=== PATIENT | male | born 1980 | race Caucasian/White ===

== ENCOUNTER 2018-03-20 10:15 | Emergency (ER) | payer OTHER, MEDICARE ==
[~2018-03-20] VITALS: Ht 170.2 cm; Wt 63.0 kg
[2018-03-20] MEDS ORDERED: ONDANSETRON ODT 4 MG ONE (10:55)
[2018-03-20] MEDS: HYDROmorphone 2 MG/ML, 1ML IVPush PRN ×2 (10:57→11:31)
[2018-03-20] MEDS ORDERED: KETOROLAC 30 MG/1 ML IVPush ONE (11:00)
[2018-03-20] MEDS ORDERED: SODIUM CHLORIDE FLUSH 10ML SYR IVF ONE (11:00)
[2018-03-20] MEDS ORDERED: HYDROmorphone 2 MG/ML, 1ML ONE (11:01)
[2018-03-20] MEDS ORDERED: KETOROLAC 30 MG/1 ML ONE (11:01)
[2018-03-20 11:11] LABS: BASOPHILS # (AUTO) 0.07 x10^3/uL (0-0.1); BASOPHILS % (AUTO) 1 % (0-1); EOSINOPHILS # (AUTO) 0.21 x10^3/uL (0-0.4); EOSINOPHILS % (AUTO) 1 % (1-7); LYMPHOCYTES # (AUTO) 3.78 x10^3/uL (1-3.4); LYMPHOCYTES % (AUTO) 26 % (22-44); MD NO; MEAN CORPUSCULAR HEMOGLOBIN 32.1 pg (27.5-34.5); MEAN CORPUSCULAR HGB CONC 33.7 g/dL (33.2-36.2); MEAN CORPUSCULAR VOLUME 95.2 fL (81-97); MONOCYTES # (AUTO) 1.06 x10^3/uL (0.2-0.8); MONOCYTES % (AUTO) 7 % (2-9); NEUTROPHILS # (AUTO) 9.73 x10^3/uL (1.8-6.8); NEUTROPHILS % (AUTO) 66 % (42-75); PLATELET COUNT 359 x10^3/uL (130-400); RED CELL DISTRIBUTION WIDTH 12.9 % (9.4-14.8)
[2018-03-20 11:12] LABS: MICROSCOPIC INDICATED
[2018-03-20 11:19] LABS: CULTURE INDICATED? NO
[2018-03-20 11:24] LABS: ALBUMIN 4.2 g/dL (3.4-5.0); ANION GAP 10 mmol/L (5-15); CHLORIDE 107 mmol/L (98-107); CREATININE 1.32 mg/dL (0.7-1.3)
[2018-03-20 12:41] VITALS: BP 122/62
== END 2018-03-20 12:44 | disposition home or self-care (01) ==
LOC: ED 11:13
DX: N13.2 Hydronephrosis with renal and ureteral calculous obstruction (principal); Z87.442 Personal history of urinary calculi
CPT/HCPCS: 36415; 74176; 80048; 81001; 82040; 85025; 96374; 96375; 96376; 99285; J1170; J1885